=== PATIENT | male | born 1990 | race Caucasian/White ===

== ENCOUNTER 2021-04-09 07:11 | Emergency (ER) | payer SELFPAY ==
[2021-04-09] MEDS ORDERED: diphenhydrAMINE 50 MG/ML VIAL ONE (07:39)
[2021-04-09] MEDS ORDERED: Metoclopramide HCl 10 MG/2 ML VIAL ONE (07:39)
[2021-04-09] MEDS ORDERED: Lidocaine 1% (PF) 30 ML VIAL ONE (07:39)
[2021-04-09] MEDS ORDERED: Ketorolac Tromethamine 30 MG/ML VIAL ONE (07:39)
== END 2021-04-09 09:11 | disposition home or self-care (01) ==
LOC: ERS 07:11
DX: R51.9 Headache, unspecified (principal); Z87.891 Personal history of nicotine dependence
CPT/HCPCS: 64405; 70450; 96372; J1200; J1885; J2001; J2765

== ENCOUNTER 2021-04-10 18:21 | Emergency (ER) | payer SELFPAY ==
[2021-04-10] MEDS ORDERED: Ketorolac Tromethamine 30 MG/ML VIAL ONE (19:11)
[2021-04-10] MEDS ORDERED: diphenhydrAMINE 50 MG/ML VIAL ONE (19:11)
[2021-04-10] MEDS ORDERED: Metoclopramide HCl 10 MG/2 ML VIAL ONE (19:11)
[2021-04-10] MEDS ORDERED: Xylocaine 1% w/ Epi 1:100K 10 ML VIAL ONE (19:12)
[2021-04-10] MEDS ORDERED: Metoclopramide HCl 10 MG TAB ONE (19:12)
[2021-04-11 11:56] LABS: SARS-CoV-2 PCR by NAA Not Detected (NotDetected)
== END 2021-04-10 20:30 | disposition home or self-care (01) ==
LOC: ERS 18:21
DX: R51.9 Headache, unspecified (principal); R11.2 Nausea with vomiting, unspecified; Z20.822 Contact with and (suspected) exposure to COVID-19; Z87.891 Personal history of nicotine dependence
CPT/HCPCS: 96372; 99284; J1200; J1885; J2765; U0003; U0005

== ENCOUNTER 2023-08-13 18:11 | Emergency (ER) | payer SELFPAY ==
[2023-08-13 20:46] LABS: #Basophils 0.03 10x3/uL (0.0-0.2); %Basophils 0.3 % (0.0-1.0); %Eosinophils 1.2 % (0.0-10.0); %Monocytes 7.1 % (0.0-10.0); %Neutrophils 60.1 % (42.0-75.0); Hematocrit 45.5 % (42.0-52.0); Hemoglobin 15.5 g/dL (14.0-18.0); Mean Corpuscular HGB CONC 34.1 g/dL (32.0-36.0); Mean Corpuscular Hemoglobin 31.7 pg (27.0-31.0); Mean Platelet Volume 10.1 fL (7.4-10.4); Platelet Count 234 10x3/uL (130-400); RBC Distribution Width 12.3 % (11.5-14.5); Red Blood Cell (RBC) Count 4.89 mill/uL (4.70-6.10)
[2023-08-13 21:08] LABS: ALT (SGPT) 14 U/L (8-55); AST (SGOT) 20 U/L (5-34); Albumin 4.5 g/dL (3.5-5.0); Alkaline Phosphatase 59 U/L (40-110); Anion Gap 17 mmol/L (10-20); BUN (Urea Nitrogen) 9 mg/dL (8.9-20.6); Calc. Creatinine Clearance 0 mL/min (70-130); Calcium 9.5 mg/dL (7.8-10.44); Carbon Dioxide 23 mmol/L (22-29); Chloride 105 mmol/L (98-107); Estimated GFR 109; Globulin 2.3 g/dL (2.4-3.5); Glucose 82 mg/dL (70-105); Lipase 19 U/L (8-78); Potassium 3.9 mmol/L (3.5-5.1); Protein, Total 6.8 g/dL (6.0-8.3); Sodium 141 mmol/L (136-145)
[2023-08-13 21:09] LABS: Troponin I Less than 0.010 ng/mL (< 0.028)
== END 2023-08-14 00:02 | disposition home or self-care (01) ==
LOC: ERS 18:11
DX: R07.9 Chest pain, unspecified (principal); Z87.891 Personal history of nicotine dependence
CPT/HCPCS: 36415; 71045; 80053; 83690; 84484; 85025; 85379; 93005